=== PATIENT | female | born 1975 | race Caucasian/White ===

== ENCOUNTER 2025-05-08 09:45 | Outpatient (CLI) | payer BC ==
[2025-05-08 11:13] LABS: Estimated GFR - POC 105.0
== END 2025-05-08 09:46 | disposition home or self-care (01) ==
LOC: SCSMRI 09:45
PROVIDERS: ATTEND Student in an Organized Health Care Education/Training Program
DX: G40.201 Localization-related (focal) (partial) symptomatic epilepsy and epileptic syndromes with complex partial seizures, not intractable, with status epilepticus (principal)
CPT/HCPCS: 70553; 82565